=== PATIENT | male | born 1960 | race Caucasian/White ===

== ENCOUNTER → 2022-09-01 | Outpatient (CLI) | payer BC | LOC: RAD 16:57 | DX: M16.0 Bilateral primary osteoarthritis of hip (principal); M51.36 Other intervertebral disc degeneration, lumbar region ==

== ENCOUNTER → 2022-11-14 | Outpatient (CLI) | payer BC | LOC: LAB 12:05 | DX: J45.909 Unspecified asthma, uncomplicated (principal); B34.9 Viral infection, unspecified; Z20.822 Contact with and (suspected) exposure to COVID-19 ==

== ENCOUNTER 2023-05-23 08:00 | Outpatient (RCR) | payer BC ==
[~2023-05-23 08:00] MED LIST: FLONASE ALLERG9.9 ML NS; ONE-A-DAY ESSE1 EACH PO; ZOLOFT25 M1 PO; ZYRTEC10 M3 PO
== END 2023-06-22 | disposition home or self-care (01) ==
LOC: PT
DX: M16.11 Unilateral primary osteoarthritis, right hip (principal); Z96.641 Presence of right artificial hip joint

== ENCOUNTER → 2023-08-14 | Outpatient (CLI) | payer BC | LOC: LAB 09:40 | DX: Z00.00 Encounter for general adult medical examination without abnormal findings (principal); Z12.5 Encounter for screening for malignant neoplasm of prostate; Z13.220 Encounter for screening for lipoid disorders; Z13.1 Encounter for screening for diabetes mellitus; J45.990 Exercise induced bronchospasm; R22.32 Localized swelling, mass and lump, left upper limb ==

== ENCOUNTER → 2024-08-15 | Outpatient (CLI) | payer BC ==
[2024-08-15 09:54] LABS: ALBUMIN 4.3 g/dL (3.4-4.8)
[2024-08-15 09:55] LABS: CALCIUM 8.9 mg/dL (8.3-10.5)
[2024-08-15 09:56] LABS: TOTAL PROTEIN 7.9 g/dL (6.2-8.1)
[2024-08-15 09:58] LABS: TOTAL BILIRUBIN 0.5 mg/dL (0.2-1.2)
== END ==
LOC: LAB 09:28
PROVIDERS: Family Medicine
DX: E78.2 Mixed hyperlipidemia (principal)

== ENCOUNTER → 2024-10-14 | Outpatient (CLI) | payer MEDICARE | LOC: RAD 12:18 | DX: M79.672 Pain in left foot (principal) ==

== ENCOUNTER → 2025-01-23 | Outpatient (CLI) | payer MEDICARE ==
[2025-01-23 14:41] LABS: BASO # 0.06 K/mm3 (0.02-0.10); EOS # 1.22 K/mm3 (0.04-0.40); EOS % 16.8 % (0.0-4.0); HEMATOCRIT 43.2 % (42.0-52.0); HEMOGLOBIN 14.3 g/dL (13.5-18.0); LYMPH# 2.74 K/mm3 (1.50-4.00); MEAN CELL VOLUME 97 fl (78-100); MEAN CORPUSCULAR HEMOGLOBIN 32 pg (27-31); MEAN CORPUSCULAR HGB CONC 33 g/dL (33-37); MEAN PLATELET VOLUME 9.1 fl (7.4-10.4); MONO # 0.77 K/mm3 (0.20-0.80); NEU # 2.46 K/mm3 (1.40-6.50); PLATELET COUNT 224 K/mm3 (130-400); RED BLOOD COUNT 4.47 M/mm3 (4.20-5.60); RED CELL DISTRIBUTION WIDTH 13.1 % (11.5-14.5); WHITE BLOOD COUNT 7.3 K/mm3 (4.8-10.8)
== END ==
LOC: LAB 13:54 → RAD 13:54
PROVIDERS: Nurse Practitioner Family
DX: R06.00 Dyspnea, unspecified (principal); R05.9 Cough, unspecified; R53.83 Other fatigue